=== PATIENT | female | born 1975 | race Caucasian/White ===

== ENCOUNTER 2017-05-24 15:32 | Emergency (ER) | payer OTHER ==
[~2017-05-24] VITALS: Ht 166.4 cm; Wt 127.0 kg
[2017-05-24 15:39] VITALS: Ht 166.4 cm; Wt 127.0 kg
--- NOTE | 2017-05-24 16:25 | ERD ---
ER Documentation Chief Complaint Chief Complaint FELL FWD ON WET FLOOR @ WORK, BILAT KNEE CAP PAIN, NO DEFORMITY HPI Otherwise healthy 41-year-old female presents with the chief complaints of bilateral knee pain that occurred at 3 hours ago. Mechanical fall with impact to the knees. Denies injury to other areas. ROS All systems reviewed and are negative except as per history of present illness. Allergies Allergies: Coded Allergies: No Known Allergy (Unverified , 05/24/17) PMhx/Soc History of Surgery: Yes (csection) Hx Miscellaneous Medical Probl: Yes (prediabetic) Hx Alcohol Use: No Hx Substance Use: No Hx Tobacco Use: No Smoking Status: Never smoker Physical Exam Vitals Vital Signs Date Time Temp Pulse Resp B/P Pulse Ox O2 Delivery O2 Flow Rate FiO2 05/24/17 15:39 99.3 92 18 124/73 96 Physical Exam Const: Well appearing 41yo female in NAD Head: Atraumatic Eyes: Normal Conjunctiva ENT: Normal External Ears, Nose and Mouth. Neck: Full range of motion..~ No meningismus. Resp: Clear to auscultation bilaterally Cardio: Regular rate and rhythm, no murmurs Abd: Soft, non tender, non distended. Normal bowel sounds Skin: No petechiae or rashes Back: No midline or flank tenderness Ext: No cyanosis, or edema. NV intact. pulses 2+. Mild ttp over knee bilaterally. Neur: Awake and alert Psych: Normal Mood and Affect Procedures/MDM Pt presents 3 hrs s/p knee contusion as described in hx. PE only remarkable for mild TTP over knees. Due to hx of trauma, XR of affected sites were obtained; read as unremarkable for acute abnormality. I have no suspicion for bony pathology or NV compromise. Most likely dx is knee contusion. Stable for DC. Recommended OTC ibuprofen Departure Diagnosis: Primary Impression: Knee contusion Encounter type: initial encounter Laterality: unspecified laterality Qualified Code: S80.00XA - Contusion of knee, unspecified laterality, initial encounter Additional Impression: Fall with no significant injury Encounter type: initial encounter Qualified Code: W19.XXXA - Fall with no significant injury, initial encounter Condition: Stable Additional Instructions: FU with PCP in 2-3 days. Return if sxs change or worsen. Comments DOS: 05/24/17 CARLOS EDUARDO SOARES PA-C May 24, 2017 16:25
--- NOTE | 2017-05-24 17:29 | RADRPT ---
PROCEDURE: XR Knee. CLINICAL INDICATION: Left knee pain TECHNIQUE: 3 images of the left knee are available for review. COMPARISON: None available FINDINGS: There is no acute fracture. Alignment is normal. Small medial femorotibial compartment osteophytes are noted. Joint spaces appear preserved. Soft tissues are grossly unremarkable. IMPRESSION: 1. No radiographic evidence of acute osseous abnormality. RPTAT: [facility] .Paco Mcgowan MD, MD Date Time Electronically viewed and signed by .Paco Mcgowan MD, on 05/24/2017 17:29 .K/
--- NOTE | 2017-05-24 17:31 | RADRPT ---
PROCEDURE: XR Knee. CLINICAL INDICATION: Right knee pain TECHNIQUE: 3 images of the right knee are available for review. COMPARISON: None available FINDINGS: There is no acute fracture. Alignment is normal. Joint spaces are preserved. Soft tissues are grossly unremarkable. IMPRESSION: 1. No radiographic evidence of acute osseous abnormality of the right knee. RPTAT: UU .Paco Mcgowan MD, MD Date Time Electronically viewed and signed by .Paco Mcgowan MD, on 05/24/2017 17:30 .K/
--- NOTE | 2017-05-24 18:11 | RADRPT ---
PROCEDURE: XR Hip. CLINICAL INDICATION: Right hip trauma TECHNIQUE: AP and frog lateral views of the right hip were performed. COMPARISON: None. FINDINGS: There is normal mineralization and alignment. No fracture or osseous lesion is identified. There are normal joints without evidence of arthritis or effusion. The soft tissues are unremarkable. IMPRESSION: Unremarkable right hip. RPTAT: [facility] Physician Amy Date Time Electronically viewed and signed by Physician Amy on 05/24/2017 18:10 RS/
== END 2017-05-24 17:22 | disposition home or self-care (01) ==
LOC: FTE 15:32
DX: S80.01XA Contusion of right knee, initial encounter (principal); S80.02XA Contusion of left knee, initial encounter; W18.39XA Other fall on same level, initial encounter; Y92.89 Other specified places as the place of occurrence of the external cause
CPT/HCPCS: 73510; 73562

== ENCOUNTER 2018-03-27 17:43 | Emergency (ER) | END 2018-03-27 21:56 | disposition home or self-care (01) ==

== ENCOUNTER 2018-12-22 16:58 | Emergency (ER) | payer BC, OTHER ==
[~2018-12-22] VITALS: Ht 167.6 cm; Wt 99.9 kg
[~2018-12-22 16:58] MED LIST: IBUP-1542 PO
[2018-12-22] MEDS ORDERED: METF-849 PO (17:08)
[2018-12-22 17:12] VITALS: BP 132/94; PULSE 97; RESP 18; Ht 167.6 cm; Wt 99.9 kg
--- NOTE | 2018-12-22 17:43 | ERD ---
ER Documentation Chief Complaint Chief Complaint PT is here for a medication refill HPI Patient is a 43-year-old female, past medical history of prediabetes, presents the ER for concerns of medication refill. Patient states she takes metformin 500 mg twice daily. Patient is requesting refill of this medication. Patient states she ran out of the medication and her primary care physician is out of the office. Patient denies any fevers, chills, nausea, vomiting, abdominal pain, chest pain, shortness of breath or LOC. Patient says she is only here for medication refill. ROS All systems reviewed and are negative except as per history of present illness. Medications Home Meds Active Scripts Metformin* (Glucophage*) 500 Mg Tab, 500 MG PO BID, #60 TAB Prov:GEO BARROW PA-C 12/22/18 Ibuprofen* (Motrin*) 600 Mg Tab, 600 MG PO Q6, #30 TAB Prov:SOILA GEORGE 03/27/18 Allergies Allergies: Coded Allergies: No Known Allergy (Unverified , 05/24/17) PMhx/Soc History of Surgery: Yes (csection) Anesthesia Reaction: No Hx Neurological Disorder: No Hx Respiratory Disorders: No Hx Cardiac Disorders: No Hx Psychiatric Problems: No Hx Miscellaneous Medical Probl: Yes (prediabetic) Hx Alcohol Use: No Hx Substance Use: No Hx Tobacco Use: No Smoking Status: Never smoker FmHx Family History: No diabetes Physical Exam Vitals Vital Signs Date Temp Pulse Resp B/P (MAP) Pulse Ox O2 O2 Flow FiO2 Time Delivery Rate 12/22/18 98.6 97 18 132/94 100 17:12 (107) Physical Exam GENERAL: Well-developed, well-nourished female. Appears in no acute distress. Speaking in full sentences HEAD: Normocephalic, atraumatic. EYES: Pupils are equally reactive bilaterally. EOMs grossly intact. No conjunctival erythema. LUNG: Clear to auscultation bilaterally. No rhonchi, wheezing, rales or coarse breath sounds. HEART: Regular rate and rhythm. No murmurs, rubs or gallops. EXTREMITIES: Equal pulses bilaterally. No peripheral clubbing, cyanosis or edema. No unilateral leg swelling. NEUROLOGIC: Alert and oriented. Moving all four extremities without any difficulty. Normal speech. Steady gait. SKIN: Normal color. Warm and dry. No rashes or lesions. Procedures/MDM MEDICAL DECISION MAKING: Patient is a 43-year-old female presents the ER for concerns of needing a medication refill of metformin.. Patient denies any symptoms at this time. Vital signs were reviewed. Patient is afebrile. Patient was not hypoxic. Patient was hemodynamically stable. Patient was given a refill of metformin and advised to follow-up with her primary care physician for any additional refills. Low suspicion for DKA. Patient was nontoxic, [id number] prior to discharge. PRESCRIPTION: Metformin DISCHARGE: At this time, patient is stable for discharge and outpatient management. I have instructed the patient to follow-up with his/her primary care physician in 1-2 days. I have discussed with the patient the possibility of needing to see a specialist for further workup and imaging studies if symptoms persist. I have instructed the patient to promptly return to the ER for any new or worsening symptoms including increased pain, fever, nausea, vomiting, weakness or LOC. The patient and/or family expressed understanding of and agreement with this plan. All questions were answered. Home care instructions were provided. Disclaimer: Inadvertent spelling and grammatical errors are likely due to EHR/dictation software use and do not reflect on the overall quality of patient care. Also, please note that the electronic time recorded on this note does not necessarily reflect the actual time of the patient encounter. Departure Diagnosis: Primary Impression: Encounter for medication refill Additional Impression: Pre-diabetes Condition: Stable Patient Instructions: Taking Medicine Safely Referrals: [facility] YOU HAVE RECEIVED A MEDICAL SCREENING EXAM AND THE RESULTS INDICATE THAT YOU DO NOT HAVE A CONDITION THAT REQUIRES URGENT TREATMENT IN THE EMERGENCY DEPARTMENT. FURTHER EVALUATION AND TREATMENT OF YOUR CONDITION CAN WAIT UNTIL YOU ARE SEEN IN YOUR DOCTORS OFFICE WITHIN THE NEXT 1-2 DAYS. IT IS YOUR RESPONSIBILITY TO MAKE AN APPOINTMENT FOR FOLOW-UP CARE. IF YOU HAVE A PRIMARY DOCTOR --you should call your primary doctor and schedule an appointment IF YOU DO NOT HAVE A PRIMARY DOCTOR YOU CAN CALL OUR PHYSICIAN REFERRAL HOTLINE AT IF YOU CAN NOT AFFORD TO SEE A PHYSICIAN YOU CAN CHOSE FROM THE FOLLOWING [facility] [address] [facility]. [facility] [address] [facility] [address] [facility]. [facility] [address] [facility]. [facility] [address] [facility]. [facility]. [address] [facility]. [facility] YOU HAVE RECEIVED A MEDICAL SCREENING EXAM AND THE RESULTS INDICATE THAT YOU DO NOT HAVE A CONDITION THAT REQUIRES URGENT TREATMENT IN THE EMERGENCY DEPARTMENT. FURTHER EVALUATION AND TREATMENT OF YOUR CONDITION CAN WAIT UNTIL YOU ARE SEEN IN YOUR DOCTORS OFFICE WITHIN THE NEXT 1-2 DAYS. IT IS YOUR RESPONSIBILITY TO MAKE AN APPOINTMENT FOR FOLOW-UP CARE. IF YOU HAVE A PRIMARY DOCTOR --you should call your primary doctor and schedule and appointment IF YOU DO NOT HAVE A PRIMARY DOCTOR YOU CAN CALL OUR PHYSICIAN REFERRAL HOTLINE AT . IF YOU CAN NOT AFFORD TO SEE A PHYSICIAN YOU CAN CHOSE FROM THE FOLLOWING [facility]IONS: [facility] [address] [place] [address] [facility] [address] [place] [address] [facility] [address] [place] [address] Additional Instructions: Call your primary care doctor TOMORROW for an appointment during the next 1-2 days.See the doctor sooner or return here if your condition worsens before your appointment time. GEO BARROW PA-C Dec 22, 2018 17:42
== END 2018-12-22 17:20 | disposition home or self-care (01) ==
LOC: E/R 16:58 → FTE 17:20
DX: R73.03 Prediabetes (principal); Z79.84 Long term (current) use of oral hypoglycemic drugs
CPT/HCPCS: 99281